=== PATIENT | male | born 1970 | race Caucasian/White ===

== ENCOUNTER 2020-08-31 19:05 | Emergency (ER) | payer OTHER ==
[2020-08-31] MEDS ORDERED: Ketorolac Tromethamine 30 MG/ML VIAL ONE (19:48)
[2020-08-31 20:07] LABS: #Basophils 0.1 10x3/uL (0.0-0.2); #Eosinphils 0.2 10x3/uL (0.0-0.5); #Monocytes 1.1 10x3/uL (0.0-1.1); #Neutrophils 10.7 10x3/uL (1.5-8.4); %Basophils 0.4 % (0.0-2.0); %Lymphocytes 17.5 % (18.0-47.0); %Monocytes 7.2 % (0.0-10.0); %Neutrophils 73.3 % (40.0-75.0); Hemoglobin 16.6 g/dL (13.5-17.5); Mean Corpuscular HGB CONC 32.2 g/dL (32.0-36.0); Mean Corpuscular Hemoglobin 30.1 pg (27.0-33.0); Mean Corpuscular Volume 93.5 fl (81.2-95.1); Mean Platelet Volume 10.7 fl (7.4-10.4); Platelet Count 217 10x3/uL (150-450); RBC Distribution Width 13.5 % (11.5-14.5); Red Blood Cell (RBC) Count 5.51 10x6/uL (4.32-5.72); White Blood Cell (WBC) Count 14.6 10x3/uL (3.5-10.5)
[2020-08-31 20:20] LABS: ALT (SGPT) 36 U/L (8-55); AST (SGOT) 30 U/L (5-34); Albumin 4.4 g/dL (3.5-5.0); Alkaline Phosphatase 45 U/L (40-110); Anion Gap 11 mmol/L (10-20); BUN (Urea Nitrogen) 16 mg/dL (8.4-25.7); Bilirubin, Total 0.8 mg/dL (0.2-1.2); Calc. Creatinine Clearance 0 mL/min (70-130); Calcium 9.6 mg/dL (7.8-10.44); Carbon Dioxide 30 mmol/L (22-29); Chloride 102 mmol/L (98-107); Globulin 2.8 g/dL (2.4-3.5); Glucose 139 mg/dL (70-105); Potassium 4.2 mmol/L (3.5-5.1); Protein, Total 7.2 g/dL (6.0-8.3); Sodium 139 mmol/L (136-145)
[2020-08-31] MEDS ORDERED: Morphine 4 MG/ML VIAL ONE (20:40)
[2020-08-31] MEDS ORDERED: Cephalexin 250 MG CAP ONE (21:57)
== END 2020-08-31 21:58 | disposition home or self-care (01) ==
LOC: CSHERS 19:05
DX: M70.21 Olecranon bursitis, right elbow (principal); I10 Essential (primary) hypertension; E78.5 Hyperlipidemia, unspecified; Z79.899 Other long term (current) drug therapy
CPT/HCPCS: 80053; 85025; 85652; 86140; 96374; 96375; J1885; J2270

== ENCOUNTER 2021-04-25 10:13 | Emergency (ER) | payer OTHER ==
[2021-04-25] MEDS ORDERED: Lidocaine 1% w/Epinephrine 1:100K 20 ML VIAL ONE (11:18)
[2021-04-25] MEDS ORDERED: Fentanyl 100 MCG/2 ML VIAL ONE (11:19)
[2021-04-25 11:34] LABS: #Basophils 0.1 10x3/uL (0.0-0.2); #Eosinphils 0.2 10x3/uL (0.0-0.5); %Basophils 0.6 % (0.0-2.0); %Eosinophils 1.6 % (0.0-6.0); %Lymphocytes 14.4 % (18.0-47.0); %Monocytes 7.7 % (0.0-10.0); %Neutrophils 73.3 % (40.0-75.0); Hemoglobin 16.7 g/dL (13.5-17.5); Mean Corpuscular HGB CONC 32.3 g/dL (32.0-36.0); Mean Corpuscular Hemoglobin 28.1 pg (27.0-33.0); Mean Corpuscular Volume 86.9 fl (81.2-95.1); Mean Platelet Volume 10.8 fl (7.4-10.4); Platelet Count 210 10x3/uL (150-450); RBC Distribution Width 15.2 % (11.5-14.5); Red Blood Cell (RBC) Count 5.95 10x6/uL (4.32-5.72); White Blood Cell (WBC) Count 12.3 10x3/uL (3.5-10.5)
[2021-04-25 11:38] LABS: ALT (SGPT) 41 U/L (8-55); AST (SGOT) 26 U/L (5-34); Albumin 4.4 g/dL (3.5-5.0); Alkaline Phosphatase 49 U/L (40-110); Anion Gap 11 mmol/L (10-20); BUN (Urea Nitrogen) 16 mg/dL (8.4-25.7); Bilirubin, Total 0.9 mg/dL (0.2-1.2); Calc. Creatinine Clearance 0 mL/min (70-130); Calcium 8.9 mg/dL (7.8-10.44); Carbon Dioxide 25 mmol/L (22-29); Chloride 105 mmol/L (98-107); Globulin 2.7 g/dL (2.4-3.5); Glucose 111 mg/dL (70-105); Potassium 4.4 mmol/L (3.5-5.1); Protein, Total 7.1 g/dL (6.0-8.3); Sodium 137 mmol/L (136-145)
[2021-04-25 11:59] LABS: CKMB 4.1 ng/mL (0-6.6)
[2021-04-25 13:00] LABS: BF Color Yellow; Body Fluid Source Synovial Fluid; Clarity Cloudy/Turbid (Clear); Tube # 1
[2021-04-25] MEDS ORDERED: HYDROcodone/Acetaminophen 10/325 mg Tablet ONE (13:32)
[2021-04-25 13:51] LABS: BF Segmented Neutrophils 90 %; Cell Count Non Hematic 10 %
[2021-04-25 17:41] LABS: Synovial Fluid, Protein 4.6 g/dL (Not Available); Synovial Fluid, Uric Acid 5.9 mg/dL (Not Available)
== END 2021-04-25 15:08 | disposition home or self-care (01) ==
LOC: CSHERS 10:13
DX: M10.9 Gout, unspecified (principal); I10 Essential (primary) hypertension; E78.5 Hyperlipidemia, unspecified
CPT/HCPCS: 20610; 36415; 80053; 82553; 82945; 84157; 84484; 84560; 85025; 85379; 89051; 96374; J3010

== ENCOUNTER 2021-11-21 06:22 | Emergency (ER) | payer OTHER ==
[2021-11-21] MEDS ORDERED: Ketorolac Tromethamine 30 MG/ML VIAL ONE (07:52)
[2021-11-21] MEDS ORDERED: Morphine 4 MG/ML VIAL ONE (07:52)
[2021-11-21] MEDS ORDERED: Lidocaine 1% (PF) 30 ML VIAL ONE (07:55)
[2021-11-21 11:28] LABS: Anion Gap 16 mmol/L (10-20); BUN (Urea Nitrogen) 18 mg/dL (8.4-25.7); Calc. Creatinine Clearance 0 mL/min (70-130); Carbon Dioxide 26 mmol/L (22-29); Chloride 100 mmol/L (98-107); Estimated GFR 69; Glucose 110 mg/dL (70-105); Potassium 4.5 mmol/L (3.5-5.1); Sodium 137 mmol/L (136-145)
[2021-11-21 11:42] LABS: Body Fluid Source Synovial Fluid
[2021-11-21 11:43] LABS: BF Color Yellow; Clarity Cloudy/Turbid (Clear)
[2021-11-21 11:49] LABS: BF Segmented Neutrophils 48 %; Cell Count Non Hematic 49 %; Lymphocytes 3 %
[2021-11-21 11:51] LABS: #Basophils 0.1 10x3/uL (0.0-0.2); #Eosinphils 0.1 10x3/uL (0.0-0.5); #Monocytes 1.1 10x3/uL (0.0-1.1); %Basophils 0.6 % (0.0-2.0); %Eosinophils 1.1 % (0.0-6.0); %Monocytes 8.7 % (0.0-10.0); %Neutrophils 73.7 % (40.0-75.0); Hemoglobin 18.4 g/dL (13.5-17.5); Mean Corpuscular HGB CONC 33.8 g/dL (32.0-36.0); Mean Corpuscular Hemoglobin 29.7 pg (27.0-33.0); Mean Corpuscular Volume 87.9 fl (81.2-95.1); Mean Platelet Volume 10.9 fl (7.4-10.4); Platelet Count 215 10x3/uL (150-450); RBC Distribution Width 14.5 % (11.5-14.5); White Blood Cell (WBC) Count 12.2 10x3/uL (3.5-10.5)
== END 2021-11-21 11:06 | disposition home or self-care (01) ==
LOC: CSHERS 06:22
DX: M10.9 Gout, unspecified (principal); I10 Essential (primary) hypertension
CPT/HCPCS: 20610; 36415; 80048; 82945; 85025; 85652; 86140; 87070; 87205; 89051; 89060; 96372; J1885; J2001; J2270

== ENCOUNTER 2024-06-11 13:09 | Emergency (ER) | payer OTHER | END 2024-06-11 14:15 | disposition home or self-care (01) | LOC: CSHERS 13:09 | DX: M70.22 Olecranon bursitis, left elbow (principal); I10 Essential (primary) hypertension; Z79.899 Other long term (current) drug therapy | CPT/HCPCS: 99283 ==

== ENCOUNTER 2025-02-02 10:50 | Emergency (ER) | payer OTHER ==
[2025-02-02] MEDS ORDERED: HYDROcodone/Acetaminophen 5/325 mg Tablet ONE (11:53)
== END 2025-02-02 12:44 | disposition home or self-care (01) ==
LOC: CSHERS 10:50
DX: M79.672 Pain in left foot (principal); I10 Essential (primary) hypertension
CPT/HCPCS: 99283